=== PATIENT | female | born 1975 | race Caucasian/White ===

== ENCOUNTER → 2021-01-04 10:21 | Outpatient (CLI) | payer OTHER, SELFPAY ==
--- NOTE | ~2021-01-04 | MM_ITS ---
EXAMINATION: MM screening vicki BI w rich HISTORY: Screening TECHNIQUE: Craniocaudal and mediolateral oblique 3-D tomosynthesis images were obtained and synthetic 2-D images were generated. CAD analysis was submitted and interpreted. COMPARISON: No prior mammogram is available for comparison at this institution. BREAST PARENCHYMAL COMPOSITION: There are scattered areas of fibroglandular density. FINDINGS: There are no suspicious masses, calcifications or architectural distortion in the right pedro ast to suggest malignancy. There are scattered asymmetries of the left breast in the upper outer quad rant, middle third and medially on CC view, anterior third. IMPRESSION: 1. Left breast asymmetries. 2. Additional mammographic views and possible breast ultrasound are recommended. BI-RADS Category 0: Incomplete: Needs additional imaging evaluation. Reviewed, dictated and finalized at location A. IMPRESSION: 1. Left breast asymmetries. 2. Additional mammographic views and possible breast ultrasound are recommended . BI-RADS Category 0: Incomplete: Needs additional imaging evaluation.
== END ==
PROVIDERS: Visit Provider Emergency Medicine
DX: Z12.31 Encounter for screening mammogram for malignant neoplasm of breast (principal); R92.8 Other abnormal and inconclusive findings on diagnostic imaging of breast
CPT/HCPCS: 77063; 77067

== ENCOUNTER 2021-11-01 06:01 | Emergency (ER) | payer SELFPAY ==
--- NOTE | ~2021-11-01 | CT_ITS ---
EXAMINATION: CT abdomen pelvis w con DATE: 11/01/2021 09:57 INDICATION: Nausea and vomiting. TECHNIQUE: Computed tomography (CT) of the abdomen and pelvis was performed with 100 mL Omnipaque 350 intravenous contrast. Automated exposure control and iterative reconstruction technique were employe d. The dose-length product was 759.41 mGy-cm. COMPARISON: None. FINDINGS: Motion artifact is noted. The visualized portions of the lung bases demonstrate a 5 mm nodu le in right lower lobe, likely benign. No pleural effusion. The heart size is normal. No pericardial effusion. There is periportal edema in the liver. There are changes of cholecystectomy. The spleen, p ancreas, adrenal glands, and kidneys are normal. There is diffuse wall thickening of the bladder. Pel dyana floor relaxation is noted. There are no dilated loops of bowel. The appendix is normal. There are no pathologically enlarged lymph nodes. There is no free intraperitoneal fluid. There is severe lowe r lumbar spondylosis. IMPRESSION: 1. Diffuse bladder wall thickening suspicious for cystitis. 2. Periportal edema in the liver. Reviewed, dictated and finalized at location A. ENGINEER
[2021-11-01 06:01] VITALS: PULSE 71; RESP 19; TEMP 36.6; O2SAT 100
--- NOTE | 2021-11-01 06:20 | PC.NURSE ---
pt currently crying, standing at the sink, drinking from the sink, now sticking her finger down her throat and vomiting into the trash can.
[2021-11-01 06:40] LABS: Basophils Absolute Auto 0.1 K/mm3 (0.0-0.1); Basophils Percent Auto 0.7 % (0.2-1.2); Eosinophils Absolute Auto 0.2 K/mm3 (0-0.3); Eosinophils Percent Auto 2.2 % (0-4.4); Hematocrit 41.3 % (37.0-47.0); Hemoglobin 14.1 g/dL (12.0-15.0); Immature Granulocyte Absolute 0.02 K/mm3 (0.00-0.031); Immature Granulocyte Percent A 0.3 % (0-0.5); Mean Corpuscular HGB Conc 34.1 g/dl (32-36); Mean Corpuscular Hemoglobin 33.7 pg (26-34); Mean Corpuscular Volume 98.6 fl (80-100); Mean Platelet Volume 10.4 fl (7.4-10.4); Monocytes Absolute Auto 0.5 K/mm3 (0.1-0.6); Monocytes Percent Auto 7.1 % (2.6-8.5); Neutrophils Absolute Auto 5.1 K/mm3 (1.3-6.7); Neutrophils Percent Auto 73.7 % (45.5-73.1); Platelet Count Result 206 k/mm3 (150-375); Red Blood Count 4.19 M/mm3 (4.2-5.4); Red Cell Distribution Width 13.2 % (11.5-14.5); White Blood Count 6.9 K/mm3 (4.5-10.0)
[2021-11-01 06:50] LABS: Alanine Aminotransferase 29 U/L (4-35); Albumin Level 4.5 g/dL (3.5-5.1); Alkaline Phosphatase 74 U/L (38-126); Anion Gap 11 mmol/L (8-16); Aspartate Amino Transferase 38 U/L (14-36); Bilirubin,Total 0.8 mg/dL (0.2-1.3); Blood Urea Nitrogen 17 mg/dL (7-17); Calcium 9.7 mg/dL (8.4-10.2); Carbon Dioxide 21 mmol/L (22-30); Chloride 106 mmol/L (98-107); Estimated CRCL calculation 116 ml/min; Estimated Glomerular Filt Rate > 60; Glucose 131 mg/dL (65-110); Lipase 89 U/L (23-300); Potassium 3.7 mmol/L (3.4-5.0); Sodium 138 mmol/L (137-145)
--- NOTE | 2021-11-01 07:39 | PC.NURSE ---
Pt called out for nausea medication. On entry to the room there was a large amount of water on the floor and on the countertop. Pt bent over trashcan with fingers in her throat making herself vomit
[2021-11-01] MEDS: LACTATED RINGERS 1,000 ML 999 ML IV CONT (07:41)
[2021-11-01] MEDS: ONDANSETRON INJ 4 MG/2 ML VIAL IV PUSH ×2 (07:42→10:04)
--- NOTE | 2021-11-01 07:44 | PC.NURSE ---
water turned off in pts room
[2021-11-01] MEDS: LORazepam INJ (*CRX) 2 MG/ML VIAL 1 MG IV PUSH (07:50)
[2021-11-01] MEDS: PANTOPRAZOLE SODIUM IV 40 MG VIAL IV PUSH (07:50)
--- NOTE | 2021-11-01 07:56 | ED.NAVMDI ---
HPI - Nausea/Vomiting/Diarrhea General Chief complaint: Nausea/Vomiting/Diarrhea Stated complaint: VOMITING Time Seen by Provider: 11/01/21 07:01 Source: patient and RN notes reviewed Mode of arrival: ambulatory Limitations: no limitations History of Present Illness HPI Narrative: This is a 46 year old female who presents for evaluation of nausea and vomiting. She started having nonbilious nausea and vomiting last night and she has continued to have emesis this morning. She is now complaining of upper abdominal pain but she is unable to describe. On arrival to patient's room, she is drinking water from [employer] and then she walked to [employer] can to stick her fingers in her mouth making herself throw up. She denies drug or alcohol use. She denies cough, sob, diarrhea or fever. Related Data Allergies Allergy/AdvReac Type Severity Reaction Status Date / Time No Known Allergies Allergy Verified 11/01/21 06:06 Review of Systems Review of Systems: All systems reviewed & are unremarkable except as noted in HPI and below PMFSH Past Medical History Medical History (Updated 11/01/21 @ 10:56 by Candelaria Bedolla MD) Patient denies medical problems Surgical History Surgical History (Updated 11/01/21 @ 07:59 by Candelaria Bedolla MD) No pertinent past surgical history Social History Social History (Updated 11/01/21 @ 07:59 by Candelaria Bedolla MD) Smoking status: Never smoker Exam Const: General: alert Orientation/consciousness: patient oriented x3 Eyes: EOM: EOMs intact bilaterally Resp: Effort & Inspection: normal respiratory effort and no retractions Auscultation: clear to auscultation bilaterally Cardio: Rate: regular rate Rhythm: regular rhythm Heart sounds: no murmurs GI: GI Palp: Yes Soft to palpation, No Tenderness to palpation present (GI) and No Guarding due to palpation present (GI) Auscultation: normal bowel sounds Neuro: General: patient oriented x3 and moves all extremities Psych: Affect: Anxious affect present Course Reevaluation(s) Reevaluation #1: Patient is resting comfortably but easily arousable. I discussed CT findings and plan for discharge. She was given water to drink and she states she feels better. Date: 11/01/21 Time: 10:53 Vital Signs Vital signs: Vital Signs Temperature 97.8 F 11/01/21 06:01 Pulse Rate 71 11/01/21 06:01 Respiratory Rate 19 11/01/21 06:01 Pulse Oximetry 100 11/01/21 06:01 Temperature 97.8 F 11/01/21 06:01 Pulse Rate 84 11/01/21 11:14 Respiratory Rate 16 11/01/21 11:14 Pulse Oximetry 98 11/01/21 11:14 MDM - Nausea/Vomiting/Diarrhea Lab Data Attestation: I reviewed the patient's lab results. Result diagrams: 11/01/21 06:19 11/01/21 06:19 Labs: Lab Results 11/01/21 11/01/21 11/01/21 Range/Units 06:19 06:19 07:42 WBC 6.9 (4.5-10.0) K/mm3 RBC 4.19 L (4.2-5.4) M/mm3 Hgb 14.1 (12.0-15.0) g/dL Hct 41.3 (37.0-47.0) % MCV 98.6 (80-100) fl MCH 33.7 (26-34) pg MCHC 34.1 (32-36) g/dl RDW 13.2 (11.5-14.5) % Plt Count 206 (150-375) k/mm3 MPV 10.4 (7.4-10.4) fl Immature Gran % (Auto) 0.3 (0-0.5) % Neut % (Auto) 73.7 H (45.5-73.1) % Lymph % (Auto) 16.0 L (18.3-44.2) % [place] % (Auto) 7.1 (2.6-8.5) % Eos % (Auto) 2.2 (0-4.4) % Baso % (Auto) 0.7 (0.2-1.2) % Lymph # (Auto) 1.10 (0.9-3.2) K/mm3 [place] # (Auto) 0.5 (0.1-0.6) K/mm3 Eos # (Auto) 0.2 (0-0.3) K/mm3 Baso # (Auto) 0.1 (0.0-0.1) K/mm3 Abs Immat Gran (auto) 0.02 (0.00-0.031) K/mm3 Absolute Neuts (auto) 5.1 (1.3-6.7) K/mm3 Absolute Nucleated RBC 0.0 (0.0-0.012) K/mm3 Nucleated RBC % 0.0 (0.0-0.2) % Sodium 138 (137-145) mmol/L Potassium 3.7 (3.4-5.0) mmol/L Chloride 106 (98-107) mmol/L Carbon Dioxide 21 L (22-30) mmol/L Anion Gap 11 (8-16) mmol/L BUN 17 (7-17) mg/dL Creatinine 0.60 L
[2021-11-01 08:07] LABS: Add Urine Microscopic? YES; Appearance Urine Cloudy (Clear); Bacteria Urine Trace /hpf; Bilirubin Urine Negative (Negative); Blood Urine Negative (Negative); Color Urine Yellow (Yellow); Glucose Urine UA Negative (Negative); Ketones Urine Trace mg/dL (Negative); Leukocyte Esterase Ur Negative LEU/UL (Negative); Mucus Urine Few /lpf; Nitrate Urine Negative (Negative); Protein Urine 1+ mg/dL (Negative); Specific Grav Ur 1.019 (1.001-1.035); Squamous Epithelial Cell Urine Rare /hpf (Few); Urobilinogen Urine Negative mg/dL (<2.0)
[2021-11-01 09:26] LABS: Pregnancy On Board Control Positive; Urine Pregnancy Test Negative
[2021-11-01 11:14] VITALS: PULSE 84; RESP 16; O2SAT 98
== END 2021-11-01 11:13 | disposition home or self-care (01) ==
PROVIDERS: Emergency Medicine; Emergency Provider General Practice
DX: N30.90 Cystitis, unspecified without hematuria (principal); E86.0 Dehydration; R11.2 Nausea with vomiting, unspecified; R93.2 Abnormal findings on diagnostic imaging of liver and biliary tract
CPT/HCPCS: 36415; 74177; 80053; 81001; 81025; 83690; 85025; 87077; 87086; 87088; 87186; 96361; 96365; 96375; 96376; 99284; C9113; J0131; J2060; J2405; J7120; Q9967